=== PATIENT | female | born 1990 | race Two or more races ===

== ENCOUNTER 2021-12-26 16:53 | Emergency (ER) | payer OTHER ==
[~2021-12-26] VITALS: Ht 152.4 cm; Wt 90.7 kg
[2021-12-26] MEDS ORDERED: PRENA1 CHEW TA1.4 MG PO (17:01)
== END 2021-12-26 21:47 | disposition home or self-care (01) ==
LOC: ER 16:53
DX: O20.9 Hemorrhage in early pregnancy, unspecified (principal); Z3A.01 Less than 8 weeks gestation of pregnancy

== ENCOUNTER 2022-02-23 15:58 | Inpatient (IN) | payer OTHER ==
[~2022-02-23] VITALS: Ht 152.4 cm; Wt 90.3 kg
[~2022-02-23 15:58] MED LIST: PRENA1 CHEW TA1.4 MG PO
== END 2022-02-25 11:25 | disposition home or self-care (01) | DRG 833 ==
LOC: OB/GYN 15:58
PROVIDERS: ADMIT Obstetrics & Gynecology; ATTEND Obstetrics & Gynecology
PROC: 4A1HXCZ Monitoring of Products of Conception, Cardiac Rate, External Approach (ICD-10-PCS; principal; 2022-02-23)
DX: O21.0 Mild hyperemesis gravidarum (principal); Z3A.14 14 weeks gestation of pregnancy; Z20.822 Contact with and (suspected) exposure to COVID-19
CPT/HCPCS: 240

== ENCOUNTER 2022-08-11 09:15 | Inpatient (IN) | payer OTHER ==
[~2022-08-11] VITALS: Ht 152.4 cm; Wt 88.5 kg
== END 2022-08-20 13:49 | disposition home or self-care (01) | DRG 785 ==
LOC: EDSTATUS 10:30 → OB/GYN 08-18 06:18 → O/R 08-18 06:18 → OB/GYN 08-18 10:30
PROVIDERS: ADMIT Obstetrics & Gynecology; ATTEND Obstetrics & Gynecology
PROC: 0UB70ZZ Excision of Bilateral Fallopian Tubes, Open Approach (ICD-10-PCS; 2022-08-18)
PROC: 4A1HXCZ Monitoring of Products of Conception, Cardiac Rate, External Approach (ICD-10-PCS; 2022-08-18)
PROC: 10D00Z1 Extraction of Products of Conception, Low, Open Approach (ICD-10-PCS; principal; 2022-08-18 12:00)
DX: O34.211 Maternal care for low transverse scar from previous cesarean delivery (principal); Z3A.39 39 weeks gestation of pregnancy; Z37.0 Single live birth; Z20.822 Contact with and (suspected) exposure to COVID-19; Z30.2 Encounter for sterilization